=== PATIENT | female | born 1975 | race Hispanic/Latino ===

== ENCOUNTER 2016-12-24 21:33 | Emergency (ER) | payer OTHER ==
[~2016-12-24] VITALS: Ht 147.3 cm; Wt 67.4 kg
[2016-12-24] MEDS ORDERED: PERCOCET 5/325M1 TAB PO (22:23)
[2016-12-24] MEDS ORDERED: AMOXICILLIN500 MG PO (22:23)
[2016-12-24 23:00] VITALS: BP 136/88
== END 2016-12-24 23:07 | disposition home or self-care (01) | DRG 159 ==
LOC: ED 21:33
DX: K08.89 Other specified disorders of teeth and supporting structures (principal)

== ENCOUNTER 2017-04-13 21:44 | Emergency (ER) | payer OTHER ==
[~2017-04-13] VITALS: Ht 147.3 cm; Wt 68.4 kg
[~2017-04-13 21:44] MED LIST: AMOXICILLIN500 MG PO; PERCOCET 5/325M1 TAB PO
[2017-04-13] MEDS ORDERED: LORTAB 1010 MG PO (23:07)
[2017-04-13 23:23] VITALS: BP 124/88
== END 2017-04-13 23:29 | disposition home or self-care (01) | DRG 159 ==
LOC: ED 21:44
DX: K08.89 Other specified disorders of teeth and supporting structures (principal)